=== PATIENT | female | born 1960 | race Caucasian/White ===

== ENCOUNTER 2020-02-09 00:10 | Day surgery (SDC) | payer MEDICARE, BC, SELFPAY ==
[2020-02-07 15:14] VITALS: BMI 36.7
[2020-02-09 09:32] VITALS: BP 143/88; PULSE 93; RESP 16; TEMP 36.9; O2SAT 98
[2020-02-09] MEDS: LACTATED RINGERS 1,000 ML 150 ML IV CONT (09:35)
--- NOTE | 2020-02-09 09:53 | P.PNAN_ITS ---
Anes - Initial Pre Proc Eval Procedure: Operation Date: 02/09/20 10:00 Proposed Procedures p Esophagogastroduodenoscopy - Nathaniel Blackburn DO Date/Time: 02/09/20 09:53 Surgeon: Nathaniel Blackburn DO Pre Op Diagnosis: iron deficiency anemia, GERD Patient Data Age: 59 Gender: F Height: 1.63 m Weight: 95.9 kg Last Vital Signs Temp 36.9 C 02/09/20 09:32 Pulse 93 02/09/20 09:32 Resp 16 02/09/20 09:32 BP 143/88 H 02/09/20 09:32 Pulse Ox 98 02/09/20 09:32 Allergies Allergy/AdvReac Type Severity Reaction Status Date / Time No Known Allergies Allergy Verified 02/09/20 09:27 Home Medications Medication Instructions Recorded Confirmed Type diazepam 10 mg tablet 10 mg PO TID PRN #90 tablet 11/16/19 02/09/20 Rx hydrocodone 7.5 mg-acetaminophen 1 tablet PO Q8H PRN #90 tablet 01/05/20 02/09/20 Rx 325 mg tablet albuterol sulfate 0.63 mg/3 mL 0.63 mg INHALATION Q4-6H PRN 01/25/20 02/09/20 History solution for nebulization cyclobenzaprine 10 mg tablet 10 mg PO TID PRN 01/25/20 02/09/20 History esomeprazole magnesium 40 mg 40 mg PO DAILY 01/25/20 02/09/20 History capsule,delayed release ferrous sulfate 325 mg (65 mg 650 mg PO DAILY 01/25/20 02/09/20 History iron) tablet fluticasone 500 mcg-salmeterol 50 1 inhalation INHALATION Q12H PRN 01/25/20 02/09/20 History mcg/dose blistr powdr for inhalation ipratropium 20 mcg-albuterol 100 1 puff INHALATION QID PRN 01/25/20 02/09/20 History mcg/actuation mist for inhalation montelukast 10 mg tablet 10 mg PO DAILY PRN 01/25/20 02/09/20 History tolterodine 4 mg capsule,extended 4 mg PO DAILY PRN 01/25/20 02/09/20 History release 24 hr zolpidem 10 mg tablet 10 mg PO .at HS PRN tablet 01/25/20 02/07/20 History plecanatide [Trulance] 3 mg PO DAILY 02/07/20 02/09/20 History Patient hx anesthesia problems: none Family hx anesthesia problems: none [facility] Past Medical History Medical History (Updated 02/08/20 @ 14:21 by Nathan Nguyễn DO) Anxiety Chronic, continuous use of opioids Essential (primary) hypertension Gastroesophageal reflux disease Hiatal hernia Mild intermittent asthma Mixed hyperlipidemia Social History Social History Smoking status: Never smoker Alcohol intake: never Anes - Eval Final PreProcedure Day of Procedure 02/09/20 09:53 Patient weight: obese Heart: regular rate and rhythm Lungs: clear to auscultation and normal air movement Airway: Mallampati scale class III Neurological: alert and oriented Last oral intake: >/= 8 hours ASA classification: III Emergent: no Anesthetic plan: proceed Anesthesia type and monitoring: general GIVS and standard monitoring Informed Consent: The patient's anesthetic plan and its attendant risks and benefits were discussed with the patient/family/POA. Questions were solicited and answers provided to the satisfaction of the patient/family/POA.
[2020-02-09 10:48] VITALS: BP 124/62; PULSE 91; RESP 21; O2SAT 98
[2020-02-09 10:58] VITALS: BP 134/72; PULSE 87; RESP 23; O2SAT 99
[2020-02-09 11:08] VITALS: BP 134/72; PULSE 88; RESP 21; O2SAT 97
[2020-02-09 11:18] VITALS: BP 135/78; PULSE 86; RESP 19; O2SAT 98
--- NOTE | 2020-05-17 08:40 | P.HP_ITS ---
H&P: HPI History of Present Illness Chief complaint: iron deficiency anemia, GERD Narrative: This very pleasant lady who was here for an EGD for dysphagia and GERD. She underwent an EGD. She was examined that day. Impression: GERD and dysphagia. Recommendation: EGD. physical examination was similar to her previous note. This H and P was done several days after the procedure. [facility] Past Medical History Medical History (Updated 02/09/20 @ 11:01 by Nathaniel Blackburn DO) Anxiety Chronic, continuous use of opioids Essential (primary) hypertension Gastroesophageal reflux disease Hiatal hernia Low bone mass Mild intermittent asthma Mixed hyperlipidemia Social History Social History Smoking status: Never smoker Alcohol intake: never Meds Home Medications and Allergies Home Medications Medication Instructions Recorded Confirmed Type diazepam 10 mg tablet 10 mg PO TID PRN #90 tablet 11/16/19 02/09/20 Rx hydrocodone 7.5 mg-acetaminophen 1 tablet PO Q8H PRN #90 tablet 01/05/2001/28 Rx 325 mg tablet albuterol sulfate 0.63 mg/3 mL 0.63 mg INHALATION Q4-6H PRN 01/25/20 02/09/20 History solution for nebulization cyclobenzaprine 10 mg tablet 10 mg PO TID PRN 01/25/20 02/09/20 History esomeprazole magnesium 40 mg 40 mg PO DAILY 01/25/20 02/09/20 History capsule,delayed release ferrous sulfate 325 mg (65 mg 650 mg PO DAILY 01/25/20 02/09/20 History iron) tablet montelukast 10 mg tablet 10 mg PO DAILY PRN 01/25/20 02/09/20 History tolterodine 4 mg capsule,extended 4 mg PO DAILY PRN 01/25/20 02/09/20 History release 24 hr zolpidem 10 mg tablet 10 mg PO .at HS PRN tablet 01/25/20 02/07/20 History plecanatide [Trulance] 3 mg PO DAILY 02/07/20 02/09/20 History albuterol sulfate 90 mcg/actuation 2 puff INHALATION Q4-6H PRN #8.5 gm 02/20/20 Rx aerosol inhaler fluticasone 500 mcg-salmeterol 50 See Rx Instructions .ROUTE 05/14/20 Rx mcg/dose blistr powdr for .COMPLEX #180 disk inhalation Allergies Allergy/AdvReac Type Severity Reaction Status Date / Time No Known Allergies Allergy Verified 02/09/20 09:27
== END 2020-02-09 11:25 | disposition home or self-care (01) ==
PROVIDERS: PCP Internal Medicine; Visit Provider Internal Medicine Gastroenterology
PROC: 0DJ08ZZ Inspection of Upper Intestinal Tract, Via Natural or Artificial Opening Endoscopic (ICD-10-PCS; CPT 43235; principal; 2020-02-09 10:00)
DX: K21.9 Gastro-esophageal reflux disease without esophagitis (principal); K31.7 Polyp of stomach and duodenum; K44.9 Diaphragmatic hernia without obstruction or gangrene; K22.4 Dyskinesia of esophagus; K31.84 Gastroparesis; I10 Essential (primary) hypertension; E78.2 Mixed hyperlipidemia; J45.20 Mild intermittent asthma, uncomplicated; F41.9 Anxiety disorder, unspecified; Z79.891 Long term (current) use of opiate analgesic; E66.9 Obesity, unspecified; Z68.36 Body mass index [BMI] 36.0-36.9, adult
CPT/HCPCS: 43239; 87081; 88305; J2704; J7120

== ENCOUNTER 2020-12-14 07:03 | Outpatient (NON) | payer MEDICARE, BC, SELFPAY ==
[2020-12-15 18:46] LABS: SARS-CoV-2 RNA PCR Negative
== END 2020-12-14 07:04 ==
LOC: ANHCOVIDDT 07:03
PROVIDERS: PCP Internal Medicine; Visit Provider Internal Medicine
DX: Z20.822 Contact with and (suspected) exposure to COVID-19 (principal); R68.89 Other general symptoms and signs
CPT/HCPCS: C9803; U0003; U0005

== ENCOUNTER 2021-08-02 09:51 | Outpatient (CLI) | payer MEDICARE, BC, SELFPAY ==
[2021-08-02 10:23] LABS: Basophils Percent Auto 0.5 % (0.2-1.2); Eosinophils Absolute Auto 0.2 K/mm3 (0-0.3); Eosinophils Percent Auto 4.3 % (0-4.4); Hematocrit 46.6 % (37.0-47.0); Hemoglobin 14.6 g/dL (12.0-15.0); Immature Granulocyte Absolute 0.01 K/mm3 (0.00-0.031); Immature Granulocyte Percent A 0.2 % (0-0.5); Lymphocytes Absolute Auto 1.43 K/mm3 (0.9-3.2); Lymphocytes Percent Auto 32.5 % (18.3-44.2); Mean Corpuscular HGB Conc 31.3 g/dl (32-36); Mean Corpuscular Hemoglobin 27.8 pg (26-34); Mean Corpuscular Volume 88.6 fl (80-100); Mean Platelet Volume 9.9 fl (7.4-10.4); Monocytes Absolute Auto 0.3 K/mm3 (0.1-0.6); Monocytes Percent Auto 6.6 % (2.6-8.5); Neutrophils Absolute Auto 2.5 K/mm3 (1.3-6.7); Neutrophils Percent Auto 55.9 % (45.5-73.1); Platelet Count Result 193 k/mm3 (150-375); Red Blood Count 5.26 M/mm3 (4.2-5.4); Red Cell Distribution Width 14.3 % (11.5-14.5); White Blood Count 4.4 K/mm3 (4.5-10.0)
[2021-08-02 12:28] LABS: Anion Gap 3 mmol/L (8-16); Blood Urea Nitrogen 15 mg/dL (7-17); Calcium 9.2 mg/dL (8.4-10.2); Carbon Dioxide 32 mmol/L (22-30); Chloride 104 mmol/L (98-107); Estimated Glomerular Filt Rate > 60; Glucose 91 mg/dL (65-110); Potassium 4.5 mmol/L (3.4-5.0); Sodium 139 mmol/L (137-145)
[2021-08-02 12:38] LABS: Iron 51 ug/dL (37-170)
[2021-08-02 12:52] LABS: Percent Iron Saturation 13 % (20-50)
[2021-08-02 13:15] LABS: Ferritin 9.67 ng/mL (11.1-264)
[2021-08-02 13:34] LABS: Folic Acid 7.4 ng/mL (2.76->20)
[2021-08-02 16:37] LABS: Cholesterol 191 mg/dL (0-200); HDL Direct 57 mg/dL; Triglycerides 70 mg/dL (<150)
[2021-08-02 16:48] LABS: LDL Cholesterol Direct 101 mg/dL
== END 2021-08-02 09:52 | disposition home or self-care (01) ==
LOC: ANHLAB 09:54
PROVIDERS: PCP Internal Medicine; Visit Provider Internal Medicine Hematology & Oncology
DX: E78.5 Hyperlipidemia, unspecified (principal); D50.9 Iron deficiency anemia, unspecified; D64.9 Anemia, unspecified; E53.8 Deficiency of other specified B group vitamins; E78.2 Mixed hyperlipidemia
CPT/HCPCS: 36415; 80048; 80061; 82607; 82728; 82746; 83540; 83550; 85025

== ENCOUNTER 2022-01-06 13:35 | Outpatient (CLI) | payer MEDICARE, BC, SELFPAY ==
[2022-01-06 13:51] LABS: Basophils Percent Auto 0.5 % (0.2-1.2); Eosinophils Absolute Auto 0.1 K/mm3 (0-0.3); Eosinophils Percent Auto 1.5 % (0-4.4); Hematocrit 44.2 % (37.0-47.0); Hemoglobin 13.7 g/dL (12.0-15.0); Immature Granulocyte Absolute 0.01 K/mm3 (0.00-0.031); Immature Granulocyte Percent A 0.2 % (0-0.5); Lymphocytes Absolute Auto 1.81 K/mm3 (0.9-3.2); Mean Corpuscular Hemoglobin 29.8 pg (26-34); Mean Corpuscular Volume 96.1 fl (80-100); Monocytes Absolute Auto 0.3 K/mm3 (0.1-0.6); Monocytes Percent Auto 5.8 % (2.6-8.5); Neutrophils Absolute Auto 3.6 K/mm3 (1.3-6.7); Platelet Count Result 225 k/mm3 (150-375); Red Cell Distribution Width 12.8 % (11.5-14.5); White Blood Count 5.8 K/mm3 (4.5-10.0)
[2022-01-06 17:10] LABS: Iron 68 ug/dL (37-170)
[2022-01-06 17:21] LABS: Percent Iron Saturation 18 % (20-50)
[2022-01-06 18:18] LABS: Folic Acid 19.8 ng/mL (2.76->20)
== END 2022-01-06 13:36 | disposition home or self-care (01) ==
LOC: ANHLAB 13:36
PROVIDERS: PCP Internal Medicine; Visit Provider Internal Medicine Hematology & Oncology
DX: D64.9 Anemia, unspecified (principal)
CPT/HCPCS: 36415; 82607; 82728; 82746; 83540; 83550; 85025

== ENCOUNTER 2022-08-21 10:32 | Outpatient (CLI) | payer MEDICARE, BC, SELFPAY ==
[2022-08-21 14:30] LABS: Alanine Aminotransferase 23 U/L (6-35); Albumin Level 4.8 g/dL (3.5-5.1); Alkaline Phosphatase 90 U/L (38-126); Anion Gap 11 mmol/L (8-16); Aspartate Amino Transferase 31 U/L (14-36); Bilirubin,Total 0.5 mg/dL (0.2-1.3); Blood Urea Nitrogen 28 mg/dL (7-17); Calcium 9.4 mg/dL (8.4-10.2); Carbon Dioxide 27 mmol/L (22-30); Chloride 101 mmol/L (98-107); Cholesterol 192 mg/dL (0-200); Estimated Glomerular Filt Rate > 60; Glucose 94 mg/dL (65-110); HDL Direct 60 mg/dL; Potassium 4.1 mmol/L (3.4-5.0); Sodium 139 mmol/L (137-145); Triglycerides 105 mg/dL (<150)
[2022-08-21 14:41] LABS: LDL Cholesterol Direct 101 mg/dL
== END 2022-08-21 10:33 | disposition home or self-care (01) ==
LOC: ANHLAB 10:34
PROVIDERS: PCP Internal Medicine; Visit Provider Nurse Practitioner
DX: E78.5 Hyperlipidemia, unspecified (principal)
CPT/HCPCS: 36415; 80053; 80061

== ENCOUNTER 2023-01-06 15:04 | Outpatient (CLI) | payer MEDICARE, BC, SELFPAY ==
[2023-01-08 20:46] LABS: PCP NEGATIVE ng/mL (<25)
[2023-01-12 09:16] LABS: Amphetamines Negative; Barbiturates Negative; Benzodiazepines Positive; Cocaine Metabolites Negative; Marijuana Metabolites Negative
== END 2023-01-06 15:05 | disposition home or self-care (01) ==
PROVIDERS: PCP Internal Medicine; Visit Provider Internal Medicine
DX: Z79.899 Other long term (current) drug therapy (principal)
CPT/HCPCS: 80307

== ENCOUNTER 2023-04-09 02:07 | Day surgery (SDC) | payer MEDICARE, BC, SELFPAY ==
[2023-03-30 13:36] VITALS: BMI 35.2
[2023-04-09 07:49] VITALS: BP 156/77; PULSE 82; RESP 18; TEMP 36.6; O2SAT 96; BMI 35.0
[2023-04-09] MEDS: LACTATED RINGERS 1,000 ML 150 ML IV CONT (08:18)
--- NOTE | 2023-04-09 08:21 | WPDANESEPPF ---
Anes - Initial Pre Proc Eval Procedure: Operation Date: 04/09/23 09:00 Proposed Procedures p Esophagogastroduodenoscopy & Colonoscopy - Nathaniel Peres MD Date/Time: 04/09/23 08:21 Surgeon: Nathaniel Peres MD Pre Op Diagnosis: RENITA, hx colon polyps Patient Data Age: 62 Gender: F Height: 1.63 m Weight: 92.7 kg Last Vital Signs Temp 98 F 04/09/23 07:49 Pulse 82 04/09/23 07:49 Resp 18 04/09/23 07:49 BP 156/77 H 04/09/23 07:49 Pulse Ox 96 04/09/23 07:49 O2 Del Method Room Air 04/09/23 07:49 Allergies Allergy/AdvReac Type Severity Reaction Status Date / Time No Known Allergies Allergy Verified 03/30/23 13:33 Home Medications Medication Instructions Recorded Confirmed Type ferrous sulfate 325 mg (65 mg 650 mg PO DAILY 01/25/20 03/30/23 History iron) tablet (Feosol) albuterol sulfate 0.63 mg/3 mL 0.63 mg (3 mL) inhalation Q4-6H 08/31/20 03/30/23 Rx solution for nebulization PRN Shortness Of Breath Or Wheezing #75 mL ascorbic acid (vitamin C) 500 mg 500 mg PO DAILY 02/13/22 03/30/23 History capsule cholecalciferol (vitamin D3) 50 50 mcg PO DAILY 02/13/22 03/30/23 History mcg (2,000 unit) capsule zinc sulfate 25 mg zinc (110 mg) 25 mg PO DAILY 02/13/22 03/30/23 History tablet (Orazinc) cyclobenzaprine 10 mg tablet See Rx Instructions .Route 11/10/22 03/30/23 Rx .COMPLEX #270 tabs fluticasone 500 mcg-salmeterol 50 See Rx Instructions .Route 11/10/22 03/30/23 Rx mcg/dose blistr powdr for .COMPLEX ##180 inhalation (Advair Diskus) tolterodine 4 mg capsule,extended See Rx Instructions .Route 11/10/22 03/30/23 Rx release 24 hr .COMPLEX #90 caps montelukast 10 mg tablet 10 mg PO DAILY PRN Allergy 02/27/23 03/30/23 Rx Symptoms #90 tabs albuterol sulfate 90 mcg/actuation See Rx Instructions .Route 03/03/23 03/30/23 Rx aerosol inhaler .COMPLEX #8.5 ea esomeprazole magnesium 40 mg 40 mg PO DAILY #90 caps 03/03/23 03/30/23 Rx capsule,delayed release plecanatide 3 mg tablet (Trulance) 3 mg PO DAILY #90 tabs 03/03/23 03/30/23 Rx zolpidem 10 mg tablet 10 mg PO .at HS PRN sleep #30 tabs 03/03/23 03/30/23 Rx hydrocodone 7.5 mg-acetaminophen 1 tablet PO Q8H PRN pain #90 tabs 03/04/23 03/30/23 Rx 325 mg tablet diazepam 10 mg tablet 10 mg PO TID PRN anxiety #90 tabs 03/09/23 03/30/23 Rx Patient hx anesthesia problems: none Family hx anesthesia problems: none Results Review: All pre-operative results and documents have been reviewed as part of the pre-operative evaluation. [facility] Past Medical History Medical History Anxiety Chronic, continuous use of opioids DDD (degenerative disc disease), lumbosacral Essential (primary) hypertension Gastroesophageal reflux disease Hiatal hernia Insomnia Iron deficiency anemia Low bone mass Mild intermittent asthma Mixed hyperlipidemia Postmenopausal Primary osteoarthritis involving multiple joints Screening for breast cancer Screening for colon cancer Surgical History Surgical History History of knee replacement Social History Social History Smoking status: Never smoker Alcohol intake: never Substance use: never Substance use type: does not use Living arrangements: alone Spiritual care concerns: No Anes - Eval Final PreProcedure Day of Procedure 04/09/23 08:21 Patient weight: obese Heart: regular rate and rhythm Lungs: clear to auscultation Airway: Mallampati scale class II Neurological: alert and oriented Last oral intake: >/= 8 hours ASA classification: III Emergent: no Anesthetic plan: proceed Anesthesia type and monitoring: general GIVS and standard monitoring Results Review: All pre-operative results and documents have been reviewed as part of the pre-operative evaluation. Informed Consent: The patient's an
--- NOTE | 2023-04-09 08:26 | PM.HPGS ---
History of Present Illness History of Present Illness Consent: Risks, benefits, and alternatives have been discussed and questions answered. Patient agrees to proceed with procedure. Chief complaint: RENITA, hx colon polyps Narrative: Francisca Cerna is a 62 year old female Is referred for both colonoscopy an EGD. Patient was found to have iron deficiency anemia. For this reason patient referred for colonoscopy an EGD. Patient has a very distant history of colon polyps. Previous colonoscopy 2018 was unremarkable. Patient reports that she has a history of acid reflux disease in the past was told she had a hiatal hernia. Patient denies any dysphagia. She has had no bleeding. Her weight has remained stable. Previous colonoscopy because of anemia in 2018 was unremarkable. Review of Systems Review of Systems: Review of systems noncontributory. [facility] Past Medical History Medical History Anxiety Chronic, continuous use of opioids DDD (degenerative disc disease), lumbosacral Essential (primary) hypertension Gastroesophageal reflux disease Hiatal hernia Insomnia Iron deficiency anemia Low bone mass Mild intermittent asthma Mixed hyperlipidemia Postmenopausal Primary osteoarthritis involving multiple joints Screening for breast cancer Screening for colon cancer Surgical History Surgical History History of knee replacement Social History Social History Smoking status: Never smoker Alcohol intake: never Substance use: never Substance use type: does not use Living arrangements: alone Spiritual care concerns: No Meds Home Medications and Allergies Home Medications Medication Instructions Recorded Confirmed Type ferrous sulfate 325 mg (65 mg 650 mg PO DAILY 01/25/20 03/30/23 History iron) tablet (Feosol) albuterol sulfate 0.63 mg/3 mL 0.63 mg (3 mL) inhalation Q4-6H 08/31/20 03/30/23 Rx solution for nebulization PRN Shortness Of Breath Or Wheezing #75 mL ascorbic acid (vitamin C) 500 mg 500 mg PO DAILY 02/13/22 03/30/23 History capsule cholecalciferol (vitamin D3) 50 50 mcg PO DAILY 02/13/22 03/30/23 History mcg (2,000 unit) capsule zinc sulfate 25 mg zinc (110 mg) 25 mg PO DAILY 02/13/22 03/30/23 History tablet (Orazinc) cyclobenzaprine 10 mg tablet See Rx Instructions .Route 11/10/22 03/30/23 Rx .COMPLEX #270 tabs fluticasone 500 mcg-salmeterol 50 See Rx Instructions .Route 11/10/22 03/30/23 Rx mcg/dose blistr powdr for .COMPLEX ##180 inhalation (Advair Diskus) tolterodine 4 mg capsule,extended See Rx Instructions .Route 11/10/22 03/30/23 Rx release 24 hr .COMPLEX #90 caps montelukast 10 mg tablet 10 mg PO DAILY PRN Allergy 02/27/23 03/30/23 Rx Symptoms #90 tabs albuterol sulfate 90 mcg/actuation See Rx Instructions .Route 03/03/23 03/30/23 Rx aerosol inhaler .COMPLEX #8.5 ea esomeprazole magnesium 40 mg 40 mg PO DAILY #90 caps 03/03/23 03/30/23 Rx capsule,delayed release plecanatide 3 mg tablet (Trulance) 3 mg PO DAILY #90 tabs 03/03/23 03/30/23 Rx zolpidem 10 mg tablet 10 mg PO .at HS PRN sleep #30 tabs 03/03/23 03/30/23 Rx hydrocodone 7.5 mg-acetaminophen 1 tablet PO Q8H PRN pain #90 tabs 03/04/23 03/30/23 Rx 325 mg tablet diazepam 10 mg tablet 10 mg PO TID PRN anxiety #90 tabs 03/09/23 03/30/23 Rx Allergies Allergy/AdvReac Type Severity Reaction Status Date / Time No Known Allergies Allergy Verified 03/30/23 13:33 Vital Signs Vital Signs - 24 hr 04/09/23 07:49 Temperature 98 F Pulse Rate 82 Respiratory Rate 18 Blood Pressure 156/77 H Pulse Oximetry 96 Oxygen Delivery Room Air Exam Narrative: Physical exam reveals patient to be alert. Vital signs stable. HEENT exam is unremarkable. Patient is anicteric. Lungs are clear to auscultation and percussi
--- NOTE | 2023-04-09 09:10 | SUR.OPER ---
EGD start 909 end 913, Colonoscopy start 918.
[2023-04-09 09:31] VITALS: BP 136/71; PULSE 88; RESP 21; O2SAT 98
[2023-04-09 09:41] VITALS: BP 149/69; PULSE 78; RESP 24; O2SAT 97
[2023-04-09 09:51] VITALS: BP 142/80; PULSE 80; RESP 23; O2SAT 94
== END 2023-04-09 10:00 | disposition home or self-care (01) ==
PROVIDERS: PCP Internal Medicine; Visit Provider Internal Medicine Gastroenterology
PROC: 0DJ08ZZ Inspection of Upper Intestinal Tract, Via Natural or Artificial Opening Endoscopic (ICD-10-PCS; CPT 43235; principal; 2023-04-09 09:00)
DX: Z12.11 Encounter for screening for malignant neoplasm of colon (principal); K63.5 Polyp of colon; K64.8 Other hemorrhoids; D50.9 Iron deficiency anemia, unspecified; K21.9 Gastro-esophageal reflux disease without esophagitis; K44.9 Diaphragmatic hernia without obstruction or gangrene; I10 Essential (primary) hypertension; E78.2 Mixed hyperlipidemia; J45.20 Mild intermittent asthma, uncomplicated; F41.9 Anxiety disorder, unspecified; G47.00 Insomnia, unspecified; M15.9 Polyosteoarthritis, unspecified; Z79.51 Long term (current) use of inhaled steroids; Z79.891 Long term (current) use of opiate analgesic; E66.9 Obesity, unspecified; Z68.35 Body mass index [BMI] 35.0-35.9, adult
CPT/HCPCS: 43239; 45385; 88305; J2704; J7120

== ENCOUNTER 2023-09-21 15:01 | Outpatient (CLI) | payer MEDICARE, BC, SELFPAY ==
[2023-09-21 16:53] LABS: Hemoglobin A1C 5.4 % (<5.7)
[2023-09-21 16:55] LABS: Alanine Aminotransferase 28 U/L (6-35); Albumin Level 4.1 g/dL (3.5-5.1); Alkaline Phosphatase 97 U/L (38-126); Anion Gap 6 mmol/L (8-16); Aspartate Amino Transferase 28 U/L (14-36); Bilirubin,Total 0.4 mg/dL (0.2-1.3); Blood Urea Nitrogen 12 mg/dL (7-17); Calcium 8.6 mg/dL (8.4-10.2); Carbon Dioxide 30 mmol/L (22-30); Chloride 102 mmol/L (98-107); Cholesterol 171 mg/dL (0-200); Estimated Glomerular Filt Rate > 60; Glucose 83 mg/dL (65-110); HDL Direct 41 mg/dL; Potassium 3.8 mmol/L (3.4-5.0); Sodium 138 mmol/L (137-145); Triglycerides 114 mg/dL (<150)
[2023-09-21 17:05] LABS: LDL Cholesterol Direct 101 mg/dL
== END 2023-09-21 15:02 | disposition home or self-care (01) ==
PROVIDERS: PCP Nurse Practitioner Family; Visit Provider Nurse Practitioner Family
DX: E78.2 Mixed hyperlipidemia (principal); Z68.35 Body mass index [BMI] 35.0-35.9, adult; I10 Essential (primary) hypertension; Z79.899 Other long term (current) drug therapy
CPT/HCPCS: 36415; 80053; 80061; 83036

== ENCOUNTER 2023-12-29 10:51 | Outpatient (CLI) | payer MEDICARE, BC, SELFPAY ==
[2023-12-29 11:18] LABS: Basophils Percent Auto 0.7 % (0.2-1.2); Eosinophils Absolute Auto 0.1 K/mm3 (0-0.3); Eosinophils Percent Auto 1.6 % (0-4.4); Hematocrit 35.8 % (37.0-47.0); Immature Granulocyte Absolute 0.02 K/mm3 (0.00-0.031); Immature Granulocyte Percent A 0.4 % (0-0.5); Lymphocytes Absolute Auto 1.44 K/mm3 (0.9-3.2); Lymphocytes Percent Auto 25.4 % (18.3-44.2); Mean Corpuscular HGB Conc 27.9 g/dl (32-36); Mean Corpuscular Hemoglobin 19.6 pg (26-34); Mean Corpuscular Volume 70.1 fl (80-100); Mean Platelet Volume 9.6 fl (7.4-10.4); Monocytes Absolute Auto 0.4 K/mm3 (0.1-0.6); Monocytes Percent Auto 7.4 % (2.6-8.5); Neutrophils Absolute Auto 3.7 K/mm3 (1.3-6.7); Neutrophils Percent Auto 64.5 % (45.5-73.1); Platelet Count Result 282 k/mm3 (150-375); Red Blood Count 5.11 M/mm3 (4.2-5.4); Red Cell Distribution Width 17.9 % (11.5-14.5); White Blood Count 5.7 K/mm3 (4.5-10.0)
[2023-12-29 11:27] LABS: Anisocytosis 1+ (NORMAL); Hypochromasia 1+ (NORMAL); Microcytosis 1+ (NORMAL); Platelet Estimate Adequate (Adequate); Schistocytes None Seen (NORMAL)
[2023-12-29 16:47] LABS: Iron 30 ug/dL (37-170)
[2023-12-29 16:48] LABS: Alanine Aminotransferase 18 U/L (6-35); Albumin Level 4.3 g/dL (3.5-5.1); Alkaline Phosphatase 85 U/L (38-126); Anion Gap 8 mmol/L (8-16); Aspartate Amino Transferase 25 U/L (14-36); Bilirubin,Total 0.4 mg/dL (0.2-1.3); Blood Urea Nitrogen 13 mg/dL (7-17); Calcium 9.3 mg/dL (8.4-10.2); Carbon Dioxide 29 mmol/L (22-30); Chloride 102 mmol/L (98-107); Cholesterol 174 mg/dL (0-200); Estimated Glomerular Filt Rate > 60; Glucose 89 mg/dL (65-110); HDL Direct 48 mg/dL; Potassium 4.3 mmol/L (3.4-5.0); Sodium 139 mmol/L (137-145); Triglycerides 111 mg/dL (<150)
[2023-12-29 16:57] LABS: Percent Iron Saturation 6 % (20-50)
[2023-12-29 16:59] LABS: LDL Cholesterol Direct 96 mg/dL
[2023-12-29 17:26] LABS: Ferritin 4.91 ng/mL (11.1-264)
[2023-12-29 18:01] LABS: Folic Acid 4.5 ng/mL (2.76->20)
[2024-01-03 06:03] LABS: Red Blood Cell Folate 643 ng/mL RBC (>280)
== END 2023-12-29 10:52 | disposition home or self-care (01) ==
LOC: ANHLAB 10:54
PROVIDERS: PCP Nurse Practitioner Family; Visit Provider Internal Medicine Hematology & Oncology
DX: D50.9 Iron deficiency anemia, unspecified (principal); K44.9 Diaphragmatic hernia without obstruction or gangrene; I10 Essential (primary) hypertension; E78.2 Mixed hyperlipidemia; D64.9 Anemia, unspecified
CPT/HCPCS: 36415; 80053; 80061; 82607; 82728; 82746; 82747; 83540; 83550; 85025

== ENCOUNTER 2024-07-29 13:30 | Outpatient (CLI) | payer MEDICARE, BC, SELFPAY ==
--- NOTE | ~2024-07-29 | DEXA_ITS ---
Bone Density Report Name: JOSE GOMEZ Age: 63 Sex: Female Ethnicity: White Date of : 1960 Indication: postmenopausal; screening for osteoporosis; height loss; inflammatory bowel disease; prior fracture; asthma or emphysema; hysterectomy; Referring Provider: LUZ BALBUENA Study: Bone densitometry was performed. Exam Date: July 29, 2024 Accession number: [id number] Bone Density: Region BMD T-score Z-score Classification AP Spine(L1, L2, L3) 0.948 -0.6 1.0 Normal Femoral Neck (Left) 0.673 -1.6 -0.1 Osteopenia Total Hip (Left) 0.879 -0.5 0.6 Normal Femoral Neck (Right) 0.730 -1.1 0.4 Osteopenia Total Hip (Right) 0.937 0.0 1.1 Normal Total Hip Mean 0.908 -0.3 0.9 Normal World Health Organization criteria for BMD impression classify patients as: Normal (T-score at or above -1.0), Osteopenia (T-score between -1.0 and -2.5), or Osteoporosis (T-score at or below -2.5). 10-year Fracture Risk: FRAX not reported because: Prior hip or vertebral fracture Clinical Information Provided by Patient: Have had a previous hip or vertebral fracture Has had a low trauma fracture Has the following medical conditions: Asthma or Emphysema, Inflammatory bowel diseases, Hysterectomy Patient maximum height was 64 No regular weight bearing exercise Drinks caffeinated beverages Onset of menses at age 10 Number of children 2 Impression: The patient has low bone mass, based on the Left Femoral Neck T-score. The patient has risk factors, including: previous fracture. Discussion: INCREASED RISK OF FRACTURE DUE TO HISTORY OF FRACTURE. The patient's previous fracture puts the patient at high risk of a future fracture. In untreated patients, the risk of osteoporotic fracture increases approximately two-fold for each 1.0 SD decrease in T-score. Low bone density is not the only risk factor for fracture; also consider factors such as patient's age, frailty or poor health, risk of falling, risk of injury, previous osteoporotic fracture, family history of osteoporosis, cigarette smoking, low body weight, etc. Not everyone with a low trauma fracture has osteoporosis; osteomalacia and other metabolic bone disorders should also be considered. Patients who have osteoporosis should be evaluated for specific diseases and conditions (secondary causes) that may cause or contribute to bone loss and fracture risk. National Osteoporosis Foundation (NOF) recommends pharmacologic intervention for patients with a prior hip or vertebral fracture regardless of BMD T-score. The patient should follow a healthful lifestyle (good nutrition with adequate calcium and vitamin D, and appropriate weight-bearing exercise). Follow-Up: Consider a repeat BMD and Vertebral Fracture Assessment (VFA) exam in 2 years or sooner if medically necessary, to
--- NOTE | ~2024-07-29 | MM_ITS ---
EXAMINATION: MM screening [facility] BI w loren HISTORY: Screening TECHNIQUE: Craniocaudal and mediolateral oblique 3-D tomosynthesis images were obtained and synthetic 2-D images were generated. CAD analysis was submitted and interpreted. COMPARISON: 10/12/2019 BREAST PARENCHYMAL COMPOSITION: Not dense: There are scattered areas of fibroglandular density. FINDINGS: There is a new focal asymmetry in the upper outer quadrant of the right breast, middle thir d. The left breast is stable. No suspicious masses, calcifications or architectural distortion in the left breast. IMPRESSION: 1. No focal right breast asymmetry. 2. Additional mammographic views and possible breast ultrasound are recommended. BI-RADS Category 0: Incomplete: Needs additional imaging evaluation. Reviewed, dictated and finalized at location B. IMPRESSION: 1. No focal right breast asymmetry. 2. Additional mammographic views and possible breast ultrasound are recommended . BI-RADS Category 0: Incomplete: Needs additional imaging evaluation.
== END 2024-07-29 13:31 | disposition home or self-care (01) ==
PROVIDERS: PCP Nurse Practitioner Family; Visit Provider Nurse Practitioner Family
DX: Z12.31 Encounter for screening mammogram for malignant neoplasm of breast (principal); Z78.0 Asymptomatic menopausal state; M85.89 Other specified disorders of bone density and structure, multiple sites; R92.8 Other abnormal and inconclusive findings on diagnostic imaging of breast
CPT/HCPCS: 77063; 77067; 77080

== ENCOUNTER 2024-08-19 13:05 | Outpatient (CLI) | payer MEDICARE, BC, SELFPAY ==
--- NOTE | ~2024-08-19 | MM_ITS ---
EXAMINATION: MM diagnostic telma RT w loren HISTORY: Right breast asymmetry TECHNIQUE: Additional 3-D tomosynthesis images of the right breast were performed and synthetic 2-D i mages were generated. CAD analysis was submitted and interpreted. COMPARISON: 07/29/2024, 10/12/2019, 10/08/2011 BREAST PARENCHYMAL COMPOSITION:Not Dense. There are scattered areas of fibroglandular density. FINDINGS: No persistent mass lesion or distortion are evident on spot compression views. No suspiciou s microcalcification. IMPRESSION: No mammographic evidence for malignancy. BI-RADS Category 1: Negative Reviewed, dictated and finalized at location .
== END 2024-08-19 13:06 | disposition home or self-care (01) ==
LOC: ANHIMG 13:06
PROVIDERS: PCP Nurse Practitioner Family; Visit Provider Nurse Practitioner Family
DX: R92.8 Other abnormal and inconclusive findings on diagnostic imaging of breast (principal)
CPT/HCPCS: 77061; 77065; G0279

== ENCOUNTER 2024-09-28 12:41 | Outpatient (CLI) | payer MEDICARE, BC, SELFPAY ==
[2024-09-28 13:07] LABS: Basophils Absolute Auto 0.1 K/mm3 (0.0-0.1); Basophils Percent Auto 1.1 % (0.2-1.2); Eosinophils Absolute Auto 0.1 K/mm3 (0-0.3); Eosinophils Percent Auto 1.5 % (0-4.4); Hematocrit 30.4 % (37.0-47.0); Hemoglobin 8.4 g/dL (12.0-15.0); Immature Granulocyte Absolute 0.01 K/mm3 (0.00-0.031); Immature Granulocyte Percent A 0.2 % (0-0.5); Lymphocytes Absolute Auto 1.22 K/mm3 (0.9-3.2); Lymphocytes Percent Auto 26.2 % (18.3-44.2); Mean Corpuscular HGB Conc 27.6 g/dl (32-36); Mean Corpuscular Hemoglobin 19.4 pg (26-34); Mean Corpuscular Volume 70.2 fl (80-100); Mean Platelet Volume 10.3 fl (7.4-10.4); Monocytes Absolute Auto 0.3 K/mm3 (0.1-0.6); Platelet Count Result 361 k/mm3 (150-375); Red Blood Count 4.33 M/mm3 (4.2-5.4); Red Cell Distribution Width 17.5 % (11.5-14.5); White Blood Count 4.7 K/mm3 (4.5-10.0)
[2024-09-28 13:27] LABS: Platelet Estimate Adequate (Adequate); Schistocytes None Seen
[2024-09-28 13:29] LABS: Anisocytosis 1+; Hypochromasia 2+; Microcytosis 1+ (NORMAL); Ovalocytes 1+; Poikilocytosis 1+
[2024-09-28 16:58] LABS: Iron 26 ug/dL (37-170)
[2024-09-28 17:09] LABS: Percent Iron Saturation 5 % (20-50)
[2024-09-28 17:35] LABS: Ferritin 3.83 ng/mL (11.1-264)
[2024-09-28 18:17] LABS: Folic Acid 6.5 ng/mL (2.76->20)
== END 2024-09-28 12:42 | disposition home or self-care (01) ==
LOC: ANHLAB 12:43
PROVIDERS: PCP Nurse Practitioner Family; Visit Provider Internal Medicine Hematology & Oncology
DX: D64.9 Anemia, unspecified (principal)
CPT/HCPCS: 36415; 82607; 82728; 82746; 83540; 83550; 85025

== ENCOUNTER 2024-11-07 11:10 | Outpatient (CLI) | payer MEDICARE, BC, SELFPAY ==
--- NOTE | ~2024-11-07 | XR_ITS ---
[id number] Ordering provider: Afia Westfall APRN History: . PT THINKS SHE SWALLOWED TOOTH BRIDGE ABOUT A MONTH AGO . Comparison: None. FINDINGS: BOWEL: Nonobstructive bowel gas pattern. ORGANOMEGALY: None. SIGNIFICANT PATHOLOGIC CALCIFICATIONS: None. OTHER: Postoperative changes in the spine. No free air is seen under the diaphragm. Appropriate area is projected over the spine at the level of T12-L1 and the lateral view which is not seen in the AP v iew may be artifactual. No radiopaque foreign bodies seen in the bowel. IMPRESSION: NO ACUTE ABDOMINAL FINDINGS. Follow-up advised. Reviewed, dictated and finalized at location A. 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
== END 2024-11-07 11:11 | disposition home or self-care (01) ==
PROVIDERS: PCP Nurse Practitioner Family; Visit Provider Nurse Practitioner Family
DX: T18.9XXA Foreign body of alimentary tract, part unspecified, initial encounter (principal)
CPT/HCPCS: 74021

== ENCOUNTER 2025-08-16 10:04 | Outpatient (CLI) | payer MEDICARE, BC, SELFPAY ==
[2025-08-16 10:38] LABS: Hematocrit 45.3 % (37.0-47.0); Hemoglobin 14.0 g/dL (12.0-15.0); Immature Granulocyte Percent A 0.2 % (0-0.5); Immature Reticulocyte Fraction 16.5 % (3.0-15.9); Lymphocytes Absolute Auto 1.25 K/mm3 (0.9-3.2); Mean Corpuscular HGB Conc 30.9 g/dl (32-36); Mean Corpuscular Hemoglobin 25.8 pg (26-34); Mean Corpuscular Volume 83.6 fl (80-100); Nucleated Red Blood Cells Absolute Auto 0.000 K/mm3 (0.0-0.012); Nucleated Red Blood Cells Perc 0.0 % (0.0-0.2); Platelet Count Result 189 k/mm3 (150-375); Red Blood Count 5.42 M/mm3 (4.2-5.4); Reticulocyte Hemoglobin Conten 31.1 pg (28.2-36.6); Reticulocytes Absolute 0.08 10^6/uL (0.02-0.10); White Blood Count 4.4 K/mm3 (4.5-10.0)
--- OUTSIDE RECORDS SUMMARY | 2025-08-16 10:48 | XMS_ITS | Clinical Summary ---
Author Organization [facility] Giorgio Bansal Address [address] [place] [address] Care Team Providers Care Clinical Pharmacist Name Role Phone Harry Torres MD Primary Care Provider [phone] Allergies No known active allergies Medications cyclobenzaprine (FLEXERIL) 10 mg tablet cyclobenzaprine 10 mg tablet Active multivit with minerals/lutein (MULTIVITAMIN 50 PLUS ORAL) multivitamin Active biotin 5 mg Capsule 5 mg. Active zolpidem (AMBIEN) 10 mg tablet zolpidem 10 mg tablet TAKE 1 TABLET BY MOUTH AT BEDTIME NEEDED Active tolterodine (Detrol LA) 4 mg Extended Release 24 hour capsule every 24 hours. Active theophylline (THEOCHRON) 300 mg Extended Release 12 hour tablet Take 300 mg by mouth. Active plecanatide (Trulance) 3 mg Tablet Trulance 3 mg tablet Active albuterol HFA 90 mcg inhaler INHALE 2 PUFFS BY MOUTH EVERY 4 TO 6 HOURS NEEDED FOR SHORTNESS OF BREATH OR WHEEZING 02/20/20 20 Active diazePAM (VALIUM) 10 mg tablet TAKE 1 TABLET BY MOUTH THREE TIMES A DAY NEEDED FOR ANXIETY 02/16/20 20 Active esomeprazole (NexIUM) 40 mg Capsule, Delayed Release(E.C.) esomeprazole magnesium 40 mg capsule,delayed release 01/03/20 20 Active diclofenac sodium (VOLTAREN) 1 % gel Apply 1 % to skin as directed. 07/22/20 17 Active flu vaccine quadrivalent cell derived 2019,4 yr up,,PF, (Flucelvax Quad [id number], PF,) 60 mcg (15 mcg x 4)/0.5 mL Syringe syringe Flucelvax Quad (PF) 60 mcg (15 mcg x 4)/0.5 mL IM syringe TO BE ADMINISTERED BY PHARMACIST FOR IMMUNIZATION Active Advair Diskus 500-50 mcg/dose disk inhaler 1 Puff every 12 hours. 02/17/20 20 Active HYDROcodone-acet aminophen (NORCO) 7.5-325 mg Tablet hydrocodone 7.5 mg-acetaminophen 325 mg tablet 10/25/20 19 Active montelukast (SINGULAIR) 10 mg tablet every 24 hours. Acti ve acetaminophen (TYLENOL) 325 mg tablet 650 mg. 09/16/20 20 Active Syringe with Needle, Disp, (BD Luer-Minerva Syringe) 3 mL 25 gauge x 1 SyringeIndicatio ns:Other dietary vitamin B12 deficiency anemia To be used with B12 10 Each 2 08/06/20 21 Active cyanocobalamin (VITAMIN B-12) 1,000 mcg/mL SolutionIndicati ons:Other dietary vitamin B12 deficiency anemia,Iron deficiency anemia, unspecified iron deficiency anemia type Inject 1 mL (1,000 mcg) by intramuscular injection every 30 days. 5 mL 3 08/06/20 21 Active VITAMIN E ORAL Take by mouth. Active polysaccharide iron complex (iFerex 150) 150 mg iron capsule Take 1 Capsule (150 mg) by mouth 2 times daily. 60 Capsule 2 03/31/20 25 Active Active Problems Problem Noted Date Diagnosed Date Other dietary vitamin B12 deficiency anemia 07/31 Iron deficiency anemia 05/16/2020 Encounters Date Type Department Care Team Description 07/04/2025 External Device Data STL ABSTRACTION Provider, Abstract 07/04/2025 External Device Data STL ABSTRACTION Provider, Abstract 06/30/2025 12:45 PM CDT Office Visit [facility] Oncology and Hematology - [address] [place] [address] Berto Mast MD Chronic anemia (Primary Dx) 06/30/2025 Orders Only [facility] Oncology and Hematology - [address] [place] [address] Berto Mast MD 06/29/2025 Orders Only [facility] Oncology and Hematology - [address] [place] [address] Berto Mast MD 06/14/2025 External Device Data STL ABSTRACTION Provider, Abstract 06/14/2025 External Device Data STL ABSTRACTION Provider, Abstract 05/23/2025 External Device Data STL ABSTRACTION Provider, Abstract from Last 3 Months Family History Medical History Relation Name Comments Cancer Brother 2 Diabetes Brother 2 Heart Disease Brother 2 Heart Disease Mother Cancer Sister 2 Relation Name Status Comments Brother 1 Alive Brother 2 Alive Father Mother Sister 1 Alive Sister 2 Social History Tobacco Use Types Packs/Day Years Used Date Smoking Tobacco: Never Smokeless Tobacco: Never Alcohol Use Standard Drinks/Week Comments Yes 0 (1 standard drink = 0.6 oz pur e alcohol) OCCASIONLLY Comments No Sex and Gender Information Value Date Recorded Sex Assigned at Not on file 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 Gender Identity Female 06/29/2025 8:54 PM CDT Sexual Orientation Straight 06/29/2025 8: 54 PM CDT Last Filed Vital Signs Vital Sign Reading Time Taken Comments Blood Pressure 151/83 06/30/2025 12:49 PM CDT Pulse 96 06/30/2025 12:45 PM CDT Temperature 37.2 C (99 F) 06/30/2025 12:45 PM CDT Respiratory Rate 16 06/30/2025 12:4 5 PM CDT Oxygen Saturation 95% 06/30/2025 12: 45 PM CDT Inhaled Oxygen Concentration - - Weight 100.6 kg (221 lb 12.8 oz) 2024 12:45 PM CDT Height 162.6 cm (5' 4) 04/02/2022 3:09 PM CDT Body Mass Index 38.07 04/02/2022 3:09 PM CDT Plan of Treatment Upcoming Encounters Date Type Department Care Team (Late st Contact Info) Description 10/20/2025 9:30 AM 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 Office Visit [facility] Oncology and Hematology - [address] [place] [address] Ness Sawant MD [address] [place] [address] Health Maintenance Due Date Last Done Comments Pre-Diabetes and Diabetes Screening 1960 DTAP/TDAP/TD VACCINES (1 - Tdap) 1979 HPV/Cotest (21-29) 1981 CERVICAL CANCER SCREENING 1990 HPV/Cotest (30-65) 1990 PAP SMEAR 1990 FIT-DNA Q 3 years 2005 FIT/FOBT Q 1 year 2005 Flex Sig/CT Colonography Q 5 years 2005 ZOSTER VACCINE (1 of 2) 2010 INFLUENZA VACCINE (#1) 2025 BREAST CANCER SCREENING 08/19/2025 08/19/20 24, 07/29/2024, 07/29/2024, Additional history exists COLORECTAL SCREENING 04/09/2033 04/09/2023, 03/24/2018, 03/24/2018 Colorectal Cancer Screening 04/09/2033 RSV VACCINE (60+ or ) (1 - 1-dose 75+ series) 2035 Procedures Procedure Name Priority Date/Time Associated Diagnosis Comments CBC WITH AUTODIFFERENTIAL Routine 2024 4:01 PM CDT IRON, TIBC, AND PERCENT SATURATION Routine 06/29/2025 10:28 AM CDT from Last 3 Months Results * CBC WITH AUTODIFFERENTIAL (06/29/2025 4:01 PM CDT) Blood us Berto Mast MD HEMATOLOGY ORDERABLES Final Res ult * IRON, TIBC, AND PERCENT SATURATION (06/29/2025 10:28 AM CDT) Blood us Berto Mast MD CHEMISTRY ORDERABLES Final Resu lt from Last 3 Months Insurance MEDICARE PART A AND B [employer] PPO Care Teams Clinical Pharmacist Relationship Specialty Start Date End Date Harry Torres MD PCP - General Family Practice 05/12/23
--- OUTSIDE RECORDS SUMMARY | 2025-08-16 10:48 | XMS_ITS | Clinical Summary ---
Author Organization [facility] Address [address] [place] [address] Care Team Providers Care Solar Maintenance Technician Name Role Phone Ethan Moss MD Primary Care Provider [phone] Source Comments [facility],non-owned Affiliates and Associated Physician Practices is amultiple site organization consisting of ambulatory clinics and hospital sitesin [place], [place], [place] and [place]. This disclosure is being madepursuant to the Care Everywhere program and may not contain all information available regarding this patient. 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 Gender Identity Not on file Sexual Orientation Not on file Plan of Treatment Health Maintenance Due Date Last Done Comments COLOGUARD (AGES 45-75) - COL ON CA SCREENING 1960 COLON MONITORING 1960 COLONOSCOPY - COLON CA SCREENING 1960 CT COLONOGRAPHY - COLON CA SCREENING 1960 Colorectal Cancer Screening 1960 FIT - COLON CA SCREENING 1960 FLEX SIG - COLON CA SCREENING 1960 LIPID TESTING 1960 MAMMOGRAM 1960 HIV SCREENING 1975 HEPATITIS C SCREENING 11/03/1978 DTAP/TDAP/TD VACCINES (1 - Tdap) 1979 PNEUMOCOCCAL VACCINE 50+ (1 of 1 - PCV) 2010 ZOSTER VACCINE (1 of 2) 2010 DEPRESSION SCREENING 11/30/2024 COVID-19 VACCINE (1 - 2023-2 5 season) 2025 INFLUENZA VACCINE (#1) 2025 Respiratory Syncytial Virus (RSV) Vaccine Pt: or over 60 yrs (1 - 1-dose 75+ series) 2035 HEPATITIS B VACCINE Aged Out No longe r eligible based on patient's age to complete this topic HIB VACCINE Aged Out No longer eligi ble based on patient's age to complete this topic HPV VACCINE Aged Out No longer eligi ble based on patient's age to complete this topic MENINGOCOCCAL (Group B) VACC INE SHARED DECISION-MAKING Aged Out No longer eligibl e based on patient's age to complete this topic MENINGOCOCCAL GROUPS A/C/Y/W VACCINE Aged Out No longer eligible b ased on patient's age to complete this topic Insurance MEDICARE Care Teams Solar Maintenance Technician Relationship Specialty Start Date End Date Ethan Moss MD [address] [facility] [address] [place] [address] PCP - General 01/18/20
--- OUTSIDE RECORDS SUMMARY | 2025-08-16 10:48 | XMS_ITS | Clinical Summary ---
Author Organization [facility] Address [facility] [place] [address] Care Team Providers Care Magnet Maker Name Role Phone Unavailable Primary Care Provider Unavailabl e Social History Tobacco Use Types Packs/Day Years Used Date Smoking Tobacco: Never Assessed Comments Unknown Sex and Gender Information Value Date Recorded Sex Assigned at Not on file Legal Sex Female 8:30 PM CDT Gender Identity Not on file Sexual Orientation Not on file Plan of Treatment Health Maintenance Due Date Last Done Comments Cervical Cancer Screening Pa p Smear (Age 30 to 64) Every 3 Years 1960 Colorectal Cancer Screening Colonoscopy (10 Years) 1960 Annual Physical 1963 Hepatitis C 1978 DTaP, Tdap and Td Vaccines ( 1 - Tdap) 1979 Cervical Cancer Screening Pa p with HPV Testing (Age 30 to 64) Every 5 Years 1990 Cervical Cancer Screening with HPV 1990 Mammogram Screening 2000 Pneumococcal Vaccine: 50+ Ye ars (1 of 1 - PCV) 2010 Zoster Vaccines (1 of 2) 2010 COVID-19 Vaccine ( - 2023-2 5 season) 2025 RSV Immunization or 60+ Years (1 - 1-dose 75+ series) 2035 Meningococcal B Vaccine Aged Out No l onger eligible based on patient's age to complete this topic Meningococcal Vaccine Aged Out No carson briana eligible based on patient's age to complete this topic RSV Immunizations Under 20 Months Aged Out No longer eligible based on patient's age to complete this topic
--- OUTSIDE RECORDS SUMMARY | 2025-08-16 10:48 | XMS_ITS | Encounter Summary ---
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
--- OUTSIDE RECORDS SUMMARY | 2025-08-16 10:48 | XMS_ITS | Clinical Summary ---
Author Organization [facility] Address [address] [place] [address] Care Team Providers Care Umbrella Tipper Machine Name Role Phone Afia Westfall NP Primary Care Provider [phone] Allergies Active Allergy Reactions Criticality Noted Date Comments Iodinated Contrast Media Sneezing,Itching Low 07/23 itching Medications PNV 16-iron fum,ah-kxbok-lqtg 3 35-1-200 mg capsule Take by mouth daily Active biotin 5 mg capsule 5 mg Active ipratropium-albut zeeshan (COMBIVENT RESPIMAT) 20-100 mcg/actuation inhalerIndication s:Chronic Obstructive Pulmonary Disease with Bronchospasms Inhale 1 puff 4 (four) times a day Active cyclobenzaprine (FLEXERIL) 10 mg tablet Take 10 mg by mouth 3 (three) times a day as needed for muscle spasms Active zolpidem (AMBIEN) 10 mg tabletIndications :Sleep-Onset Insomnia Take 10 mg by mouth nightly as needed for sleep Active tolterodine LA (DETROL LA) 2 mg 24 hr capsule Take 2 mg by mouth daily Active esomeprazole DR (NexIUM) 40 mg capsule Take 20 mg by mouth daily before breakfast Active multivit with minerals/lutein (MULTIVITAMIN 50 PLUS ORAL) multivitamin Active albuterol 0.63 mg/3 mL nebulizer solution albuterol sulfate 0.63 mg/3 mL solution for nebulization Inhale by inhalation route. Active linaCLOtide (LINZESS) 290 mcg capsule Rx: Linzess 290 MCG Capsule, TAKE: TAKE ONE CAPSULE EVERY DAY ON EMPTY STOMACH AT LEAST 30 MINUTES PRIOR TO 1ST MEAL OF THE DAY, REFILLS: 3 Active polyethylene glycol (MIRALAX) 17 gram/dose powder Use entire 255g bottle with 64oz of clear liquid as directed for colonoscopy prep. 07/29/20 Active montelukast (SINGULAIR) 10 mg tablet daily Active theophylline (THEODUR) 300 mg 12 hr tablet Take 300 mg by mouth every 12 (twelve) hours Active plecanatide 3 mg tablet 3 mg 08/30/20 Active diclofenac sodium (VOLTAREN) 1 % gel Place 1 % on the skin 07/22/20 Active diazePAM (VALIUM) 10 mg tablet TAKE 1 TABLET BY MOUTH THREE TIMES A DAY NEEDED FOR ANXIETY 09/01/20 Active acetaminophen (TYLENOL) 325 mg tablet 650 mg 09/16/20 Active HYDROcodone-aceta minophen (NORCO) 5-325 mg per tabletIndications :Pain Take 1-2 tablets every 4 to 6 hours as needed for pain 40 tablet 11/20/20 Active cyanocobalamin (Vitamin B-12) 1,000 mcg/mL injection Inject 1,000 mcg into the muscle as instructed every 4 (four) weeks 11/15/20 Active syringe with needle 3 mL 25 gauge x 1 syringe To be used with B12 11/26/20 Active Advair Diskus 500-50 mcg/dose diskus inhaler 11/25/20 Active polysaccharide iron complex (NU-IRON) 150 mg iron capsule Take 150 mg by mouth 2 (two) times a day 11/15/20 Active Active Problems Problem Noted Date Diagnosed Date Osteoarthritis 11/08/2019 Lumbar radiculopathy 04/07/2019 Chronic bilateral low back pain with left-sided sciatica 04/07/2019 Sacroiliitis 04/07/2019 Lumbar post-laminectomy syndrome 04/07/2019 Primary osteoarthritis of left knee 07/22/2017 Surgical History Surgery Date Site/Laterality Comments LUMBAR SPINE SURGERY rods, plates,screws REPLACEMENT TOTAL KNEE Right HYSTERECTOMY JOINT REPLACEMENT Left Medical History Medical History Date Comments Arthritis H/O degenerative disc disease Osteoarthritis Family History Medical History Relation Name Comments Cancer Father Heart attack Mother Relation Name Status Comments Father Mother Social History Tobacco Use Types Packs/Day Years Used Date Smoking Tobacco: Never Smokeless Tobacco: Never Alcohol Use Standard Drinks/Week Comments Yes 0 (1 standard drink = 0.6 oz pur e alcohol) PHQ-2 Answer Date Recorded PHQ-2 Score 3 07/23/2019 Personal Safety Answer Date Recorded Have you ever been in or are you currently in a harmful physical or emotional relationship or is someone making you feel afraid or unsafe? Denies 06/15/2024 Comments Unknown Sex and Gender Information Value Date Recorded Sex Assigned at Not on file Legal Sex Female 12:58 AM MEDICAL SCIENTIST Gender Identity Not on file Sexual Orientation Not on file Occupation Industry Job Start Date Job End Date disabled Not on file Not on file Not on file Obstetrics History Last Filed Vital Signs Vital Sign Reading Time Taken Comments Blood Pressure 182/96 06/15/2024 5:50 PM CDT Pulse 70 06/15/2024 5:50 PM CDT Temperature 36.8 C (98.2 F) 06/15/2024 4:50 PM CDT Respiratory Rate 19 06/15/2024 5:50 PM CDT Oxygen Saturation 99% 06/15/2024 5:50 PM CDT Inhaled Oxygen Concentration - - Weight 93 kg (205 lb) 06/15/2024 3:03 PM CDT Height 162.6 cm (5' 4) 06/15/2024 3:03 PM CDT Body Mass Index 35.19 06/15/2024 3:03 PM CDT Plan of Treatment Health Maintenance Due Date Last Done Comments Breast Cancer Screening-Mammogram 1960 Colon Cancer Screening-Colonoscopy 1960 Hepatitis C Screening 1960 DTaP/Tdap/Td Vaccine (1 - Tdap) 1971 Hepatitis B Screening 1978 Regular Well Visit/Exam 18-64 1978 Zoster Vaccine (1 of 2) 2010 Depression Screening 04/07/2020 04/07/2019, 04/07/20 19 Pneumococcal vaccine <65 (3 of 3 - PCV20 or PCV21) 09/27/2024 09/27/2019, 08/08/2014 Influenza Vaccine (#1) 2025 9, 12/24/2015, 08/18/2014, Additional history exists Insurance MEDICARE BLUE [facility] Address: [address] [place] [address] MEDICARE BLUE ACCESS [place] BLUE ACCESS [facility] Address: [address] [place] [address] MEDICARE BLUE ACCESS OOS Care Teams Umbrella Tipper Machine Relationship Specialty Start Date End Date Afia Westfall NP [address] [place] [address] PCP - General Nurse Practitioner 06/15/24
--- OUTSIDE RECORDS SUMMARY | 2025-08-16 10:48 | XMS_ITS | Encounter Summary ---
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
--- OUTSIDE RECORDS SUMMARY | 2025-08-16 10:48 | XMS_ITS | Clinical Summary ---
Author Organization [facility] Address [address] [facility] [address] [place] [address] Phone Care Team Providers Care Collateral Clerk Name Role Phone Liz Mason MD Unavailable [phone] Ivan Camacho DO Primary Care Provider [phone] Allergies No known active allergies Medications Multiple Vitamins-Minera ls (MULTIVITAMIN PO) Take by mouth. Activ e cyclobenzaprine (FLEXERIL) 10 MG Tablet Take 10 mg by mouth 3 times daily as needed for Muscle spasms. Active theophylline CR, 12 hour, (THEODUR) 300 MG TABLET SR 12 HR Take 300 mg by mouth every 12 hours. Active fluticasone-mendoza meterol (ADVAIR DISKUS) 500-50 MCG/DOSE AEROSOL POWDER, BREATH ACTIVATED take 1 Puff by inhalation 2 times daily. Active albuterol (ACCUNEB) 0.63 MG/3ML Nebulizer Soln 0.63 mg by Nebulization route every 4 hours as needed for Wheezing. Active Ipratropium-Alb uterol (COMBIVENT RESPIMAT) 20-100 MCG/ACT Aerosol Solution take 1 Puff by inhalation 4 times daily. Active diazePAM (VALIUM) 10 MG Tablet Take 10 mg by mouth every 6 hours as needed for Anxiety. Active tolterodine (DETROL LA) 4 MG CAPSULE SR 24 HR Take 4 mg by mouth daily. Active montelukast (SINGULAIR) 10 MG Tablet Take 10 mg by mouth every evening. Active zolpidem (AMBIEN) 10 MG Tablet Take 10 mg by mouth nightly as needed. Active HYDROcodone-aleshia taminophen (NORCO) 10-325 MG Tablet Take 1 Tab by mouth every 6 hours as needed for Pain. Active polyethylene glycol (MIRALAX) Powder Use entire 255g bottle with 64oz of clear liquid as directed for colonoscopy prep. 255 g 7 Active esomeprazole (NEXIUM) 40 MG CAPSULE DELAYED RELEASE Take 1 Cap by mouth 2 times daily. 180 Cap 3 0 Active ferrous sulfate 325 (65 Fe) MG Tablet Take 1 Tab by mouth 2 times daily. 60 Tab 3 0 Active Family History Medical History Relation Name Comments Heart Attack Brother 1 Heart Attack Brother 2 Lung Cancer Father Heart Attack Mother Relation Name Status Comments Brother 1 Brother 2 Father Mother Social History Tobacco Use Types Packs/Day Years Used Date Smoking Tobacco: Never Smokeless Tobacco: Never Tobacco Cessation:Counseling Given: No Alcohol Use Standard Drinks/Week Comments No 0 (1 standard drink = 0.6 oz pur e alcohol) occassionally Comments No Sex and Gender Information Value Date Recorded Sex Assigned at Not on file Legal Sex Female 12:33 AM CDT Gender Identity Not on file Sexual Orientation Not on file Last Filed Vital Signs Vital Sign Reading Time Taken Comments Blood Pressure 152/90 01/03/2020 2:01 PM BASEBALL WINDER Pulse 86 01/03/2020 2:01 PM BASEBALL WINDER Temperature 36.8 C (98.2 F) 01/03/2020 2:01 PM BASEBALL WINDER Respiratory Rate 18 01/03/2020 2:01 PM BASEBALL WINDER Oxygen Saturation 97% 01/03/2020 2:01 PM BASEBALL WINDER Inhaled Oxygen Concentration - - Weight 97.1 kg (214 lb) 01/03/2020 2:01 PM BASEBALL WINDER Height 162.6 cm (5' 4) 01/03/2020 2:01 PM BASEBALL WINDER Body Mass Index 36.73 01/03/2020 2:01 PM BASEBALL WINDER Plan of Treatment Health Maintenance Due Date Last Done Comments Hepatitis C Virus (HCV) Screening 1960 TdaP Immunization 1960 Cologuard 2005 Immunochemical Fecal Occult Blood 2005 Zoster Immunization (1 of 2) 2010 Colonoscopy 03/24/2023 03/24/2018 Colorectal Cancer Screening 03/24/2023 Pneumococcal Immunization (50+ years) (3 of 3 - PCV20 or PCV21) 09/27/2024 09/27/2019, 08/08/2014 Influenza Immunization (#1) 07/31/202508/30, 12/24/2015, 08/18/2014, Additional history exists SARS-COV-2 Immunization (2024- season) 2025 10/18/2021, 02/28/2021, 01/31/2021 Respiratory Syncytial Virus (RSV) Immunization (Adult) (1 - 1-dose 75+ series) 2035 Pneumococcal Immunization Combined Discontinued 09/27/2019, 08/08/2014 Hepatitis B Immunization Aged Out No longer eligible based on patient's age to complete this topic Human Papillomavirus (HPV) Immunization Aged Out No longer eligible based on patient's age to complete this topic Meningococcal Immunization (ACWY) Aged Out No longer eligible based on patient's age to complete this topic Rotavirus Immunization Aged Out No lo nger eligible based on patient's age to complete this topic Procedures Procedure Name Priority Date/Time Associated Diagnosis Comments COLONOSCOPY Routine 03/24/2018 from Last 3 Months or Most Recently Relevant to Health Maintenance Results * COLONOSCOPY (03/24/2018) Nathaniel Blackburn DO PROCEDURE/MINOR SURGICAL ORDERA BLES Final Result from Last 3 Months or Most Recently Relevant to Health Maintenance Insurance MEDICARE [facility] Care Teams Collateral Clerk Relationship Specialty Start Date End Date Ivan Camacho DO [address] [address] PCP - General Internal Medicine 01/27/20 Liz Mason MD Consulting Physician Gastroenterology 08/19/17
[2025-08-16 11:00] LABS: Hemoglobin A1C 5.4 % (<5.7)
[2025-08-16 11:03] LABS: Alanine Aminotransferase 26 U/L (6-35); Albumin Level 4.4 g/dL (3.5-5.1); Alkaline Phosphatase 90 U/L (38-126); Anion Gap 8 mmol/L (4-12); Aspartate Amino Transferase 33 U/L (14-36); Bilirubin,Total 0.3 mg/dL (0.2-1.3); Blood Urea Nitrogen 12 mg/dL (7-17); Calcium 9.3 mg/dL (8.4-10.2); Carbon Dioxide 28 mmol/L (22-30); Chloride 104 mmol/L (98-107); Cholesterol 196 mg/dL (0-200); Estimated Glomerular Filt Rate > 60; Glucose 91 mg/dL (65-110); HDL Direct 47 mg/dL; Potassium 3.9 mmol/L (3.4-5.0); Sodium 140 mmol/L (137-145); Total Protein 7.2 g/dL (6.3-8.2); Triglycerides 133 mg/dL (<150)
--- OUTSIDE RECORDS SUMMARY | 2025-08-16 11:09 | XMS_ITS | Clinical Summary ---
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
--- OUTSIDE RECORDS SUMMARY | 2025-08-16 11:09 | XMS_ITS | Clinical Summary ---
Author Organization [facility] Giorgio Bansal Address [address] [facility] [place] [address] Care Team Providers Care Textile Conservator Name Role Phone Harry Torres MD Primary Care Provider [phone] Allergies No known active allergies Medications cyclobenzaprine [...] cell derived 2019,4 yr up,,PF, (Flucelvax Quad 0849-3311, PF,) 60 mcg (15 mcg x 4)/0.5 [...] Abstract 06/30/2025 12:45 PM CDT Office Visit [facility] Oncology and Hematology - [address] [place] [address] Berto Mast MD Chronic anemia (Primary Dx) 06/30/2025 Orders Only [facility]ematology - [address] [place] [address] Berto Mast MD 06/29/2025 Orders Only [facility]ematology - [address] [place] [address] Berto Mast MD 06/14/2025 External Device Data [...] on file Legal Sex Female 10:36 AM MEDIA RELATIONS COORDINATOR Gender Identity Female 06/29/2025 8:54 PM CDT [...] st Contact Info) Description 10/20/2025 9:30 AM MEDIA RELATIONS COORDINATOR Office Visit [facility] Oncology and Hematology - [address] [place] [address] Ness Sawant MD [address] [place] [address] Health Maintenance Due Date Last [...] Months Insurance MEDICARE PART A AND B [employer] ACCESS/[employer] PPO Care Teams Textile Conservator Relationship Specialty Start Date End Date Harry Torres MD PCP - General Family Practice 05/12/23
--- OUTSIDE RECORDS SUMMARY | 2025-08-16 11:10 | XMS_ITS | Patient Health Record ---
Author Organization [facility] Address [address] [place] [address] Care Team Providers Care Mortgage Lender Name Role Phone AARON MENDOZA Unavailable [phone] Reason For Referral No Information Plan Of Treatment No Information
--- OUTSIDE RECORDS SUMMARY | 2025-08-16 11:10 | XMS_ITS | Clinical Summary ---
Author Organization [facility] Address [facility] [place] [address] Care Team Providers Care Wool Hanker Name Role Phone Unavailable Primary Care Provider [...]
--- OUTSIDE RECORDS SUMMARY | 2025-08-16 11:10 | XMS_ITS | Patient Health Record ---
Author Organization [facility] Address [address] [facility] [address] [place] [address] Care Team Providers Care Sulfuric Acid Plant Operator Name Role Phone Shiva Saldivar Unavailable [phone] Reason For Referral No Information Plan Of Treatment No Information
--- OUTSIDE RECORDS SUMMARY | 2025-08-16 11:10 | XMS_ITS | Encounter Summary ---
Author Organization [facility] Address [address] [place] [address] Care Team Providers Care Group Leader Wafer Polishing Name Role Phone Ethan Moss MD Primary Care Provider [phone] Encounter Details Date Type Department Care Team (Late st Contact Info) Description 05/15/2020 Telephone [facility] [address] [place], [place] [id number] Bonny Carvajal Social History Tobacco Use Types Packs/Day Years Used Date Smoking Tobacco: Never Assessed Comments Unknown Sex and Gender Information Value Date Recorded Sex Assigned at Not on file Legal Sex Female 6:21 AM OFFSET 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
--- OUTSIDE RECORDS SUMMARY | 2025-08-16 11:10 | XMS_ITS | Clinical Summary ---
Author Organization [facility] Address [address] [place] [address] Care Team Providers Care Analytic Manager Name Role Phone Ethan Moss MD Primary Care Provider [phone] Source Comments [facility],non-owned Affiliates and Associated Physician Practices is amultiple site organization consisting of ambulatory clinics and hospital sitesin [place], [place], [place] and [place]. This disclosure is being madepursuant to the Care Everywhere program and may not contain all information available regarding this patient. 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
--- OUTSIDE RECORDS SUMMARY | 2025-08-16 11:10 | XMS_ITS | Encounter Summary ---
Author Organization [facility] Address [address] [facility] [place] [address] Care Team Providers Care Quality Control Specialist Name Role Phone Ethan Moss MD Primary Care Provider [phone] Encounter Details Date Type Department Care Team (Late st Contact Info) Description 05/15/2020 Telephone [facility] [address] [place] [address] Bonny Carvajal Social History Tobacco Use Types Packs/Day Years Used Date Smoking Tobacco: Never Assessed Comments Unknown Sex and Gender Information Value Date Recorded Sex Assigned at Not on file Legal Sex Female 6:21 AM REHABILITATION SERVICES COUNSELOR Gender Identity Not on file Sexual Orientation Not on file documented as of this encounter Plan of Treatment Not on file documented as of this encounter Visit Diagnoses Not on filedocumented in this encounter Care Teams Quality Control Specialist Relationship Specialty Start Date End Date Ethan Moss MD [address] [facility] [address] [place] [address] PCP - General 01/18/20 documented as of this encounter
--- OUTSIDE RECORDS SUMMARY | 2025-08-16 11:10 | XMS_ITS | Clinical Summary ---
Author Organization [facility] Address [address] [facility] [address] [place] [address] Phone Care Team Providers Care Financial Sales Manager Name Role Phone Liz Mason MD Unavailable [phone] Ivan Camacho DO Primary Care Provider [phone] Allergies No known active allergies Medications Multiple [...] Comments Blood Pressure 152/90 01/03/2020 2:01 PM CAGE SUPERVISOR Pulse 86 01/03/2020 2:01 PM CAGE SUPERVISOR Temperature 36.8 C (98.2 F) 01/03/2020 2:01 PM CAGE SUPERVISOR Respiratory Rate 18 01/03/2020 2:01 PM CAGE SUPERVISOR Oxygen Saturation 97% 01/03/2020 2:01 PM CAGE SUPERVISOR Inhaled Oxygen Concentration - - Weight 97.1 kg (214 lb) 01/03/2020 2:01 PM CAGE SUPERVISOR Height 162.6 cm (5' 4) 01/03/2020 2:01 PM CAGE SUPERVISOR Body Mass Index 36.73 01/03/2020 2:01 PM CAGE SUPERVISOR Plan of Treatment Health Maintenance Due Date [...] Recently Relevant to Health Maintenance Insurance MEDICARE [facility] Care Teams Financial Sales Manager Relationship Specialty Start Date End Date Ivan Camacho DO [address] [address] PCP - General Internal Medicine 01/27/20 Liz Mason MD Consulting Physician Gastroenterology 08/19/17
[2025-08-17 15:09] LABS: Alpha Thal Reflex Not indicated. (.); Ferritin 257 ng/mL (15-150); Hematocrit 46.6 % (34.0-46.6); Hemoglobin 14.1 g/dL (11.1-15.9); MCH 25.5 pg (26.6-33.0); MCHC 30.3 g/dL (31.5-35.7); MCV 84 fL (79-97); RBC 5.54 x10E6/uL (3.77-5.28); RDW 19.3 % (11.7-15.4); WBC 4.5 x10E3/uL (3.4-10.8)
[2025-08-18 14:08] LABS: Deamidated Gliadin Abs, IgA 3 units (0-19); Deamidated Gliadin Abs, IgG 3 units (0-19); Immunoglobulin A, Qn 98 mg/dL (87-352)
[2025-08-25 13:00] LABS: Alpha-Thalassemia Negative
== END 2025-08-16 10:05 | disposition home or self-care (01) ==
PROVIDERS: PCP Nurse Practitioner Family; Visit Provider Nurse Practitioner Family
DX: D50.9 Iron deficiency anemia, unspecified (principal); D51.9 Vitamin B12 deficiency anemia, unspecified; D64.9 Anemia, unspecified; F41.9 Anxiety disorder, unspecified; R73.01 Impaired fasting glucose; E78.2 Mixed hyperlipidemia; Z13.220 Encounter for screening for lipoid disorders
CPT/HCPCS: 36415; 80053; 80061; 81257; 82668; 82784; 83013; 83020; 83036; 84238; 85025; 85046; 85652; 85660; 86231; 86258